=== PATIENT | male | born 1965 | race Caucasian/White ===

== ENCOUNTER → 2016-12-11 | Outpatient (CLI) | payer OTHER ==
[~2016-12-11] MED LIST: ACCUNEB 0.1.25 MG/1 INH; ADVAIR 250/501 EA PO; ASPIRIN325 M2 PO; ATIVAN1 MG PO; BROMFED DM COU118 M1 PO; CALCIUM-500 5001 CTB PO; CELEXA20 MG PO; CIPRO500 MG PO; CLARITIN-D 12 H1 TAB PO; CLARITIN10 MG PO; DOXYCYCLINE100 M3 PO; FIORICET 325 MG1 TAB PO; IBU-8800 MG PO; KLONOPIN2 MG PO; MEDROL DOSEPAK4 MG PO; NORCO 325 MG-51 TAB PO; OXYGEN NAS; PLAVIX75 MG PO; PREDNISONE10 MG PO; ROBITUSSIN AC 110 ML PO; SINGULAIR CHEWAB4 MG PO; SINGULAIR10 MG PO; TRAMADOL HCL50 MG PO; TRAZADONE HYDR100 MG PO; ULTRAM50 MG PO; VALIUM10 MG PO; VALIUM5 MG PO; VENTOLIN H0.09 MG/AC INH; VIBRAMYCIN100 MG PO; VICODIN 5/500 505 MG PO; VITAMIN D50000 I3 PO; XANAX1 MG PO
== END | disposition home or self-care (01) ==
LOC: RAD 09:39
DX: M51.36 Other intervertebral disc degeneration, lumbar region (principal); M54.5 Low back pain

== ENCOUNTER → 2017-11-10 | Outpatient (CLI) | payer OTHER | END | disposition home or self-care (01) | LOC: CT 12:58 | DX: J43.9 Emphysema, unspecified (principal); N20.0 Calculus of kidney; J45.909 Unspecified asthma, uncomplicated; R76.11 Nonspecific reaction to tuberculin skin test without active tuberculosis; Z72.0 Tobacco use; Z80.1 Family history of malignant neoplasm of trachea, bronchus and lung ==

== ENCOUNTER → 2018-06-17 | Day surgery (SDC) | payer OTHER ==
[~2018-06-17] VITALS: Ht 162.5 cm; Wt 59.0 kg
[~2018-06-17] MED LIST changes: +SUNMARK OMEPRAZ20 M1 PO
--- NOTE | ~2018-06-17 | O ---
[place], [place] OPERATIVE NOTE NAME: SARAH MACIEL UNIT #: [id number] ROOM: [facility] [birth year] DOS: 06/17/2018 GASTROENDOSCOPIC REPORT HISTORY OF PRESENT ILLNESS: This is a 53-year-old who presented with chief complaint of upper esophageal dysphagia to solid food. ALLERGIES: PENICILLIN. FAMILY HISTORY: Father with esophageal carcinoma. PAST SURGICAL HISTORY: Right inguinal hernia. PAST MEDICAL HISTORY: Anxiety, COPD, sinusitis, sleep apnea. SOCIAL HISTORY: Smoker and 12 carbonated soda per day. PROCEDURE: Today's procedure part of investigation is panendoscopy plus balloon dilation of esophagus plus biopsy of gastritis. PREMEDICATION: Propofol. SCOPE: Olympus forward-viewing gastroscope Q10 video. REPORT: After putting the patient in left lateral position and application of lubricant to the scope, the scope was introduced. Thereafter, under direct visualization, advanced through the length of esophagus without difficulty. Esophagus, cervical, thoracic distally carefully examined. Narrowing was noticed, however, there were no intraluminal lesions. Gastric pouch was entered, gastritis seen. Antral biopsy obtained for H. pylori. Duodenal bulb, second and third part within normal limit. The patient was extubated to mid gastric pouch and a balloon size 20 was introduced into the esophagus and to size 18 was dilated. Highest resistance at upper esophagus noticed. The patient was extubated, tolerated the procedure well. IMPRESSION: 1. Bile reflux gastritis, status post antral biopsy. 2. Benign esophageal stricture, status post balloon dilation. PLAN AND DISCUSSION: I have counseled the patient to abstain from avid smoking as well as drinking 12 cans of carbonated sodas per day. On the other hand, I am going to start him on omeprazole 20 mg 1 daily and clinically reassess in the GI Clinic to see if there is any improvement in his swallows. Otherwise, he is advised to have routine followup with you in office. Photographic series have been attached to the chart for future reference. Thank you very much indeed for your kind referral. [place], [place] OPERATIVE NOTE NAME: SARAH MACIEL UNIT #: [id number] ROOM: [facility] BIR[facility]: [birth year] ALEX HAYES MD CM:ROGERS:OPERATIVE NOTE 5 ALEX HAYES MD 06/17/18 0933 interface
[2018-06-17 08:32] VITALS: BP 118/81
[2018-06-17 09:09] VITALS: BP 91/49
[2018-06-17 09:40] VITALS: BP 115/73
== END | disposition home or self-care (01) ==
LOC: SDC 06-12 10:15
DX: K29.50 Unspecified chronic gastritis without bleeding (principal); K22.2 Esophageal obstruction; J44.9 Chronic obstructive pulmonary disease, unspecified; F41.9 Anxiety disorder, unspecified; G47.33 Obstructive sleep apnea (adult) (pediatric); F17.210 Nicotine dependence, cigarettes, uncomplicated; F32.9 Major depressive disorder, single episode, unspecified; Z80.0 Family history of malignant neoplasm of digestive organs; Z88.0 Allergy status to penicillin; Z98.890 Other specified postprocedural states; Z79.899 Other long term (current) drug therapy; Z86.010 Personal history of colon polyps; Z88.8 Allergy status to other drugs, medicaments and biological substances

== ENCOUNTER → 2020-07-18 | Outpatient (CLI) | payer OTHER | END | disposition home or self-care (01) | LOC: US 15:49 | PROVIDERS: ATTEND Nurse Practitioner Primary Care | DX: R59.0 Localized enlarged lymph nodes (principal) ==

== ENCOUNTER 2020-09-22 10:09 | Emergency (ER) | payer OTHER ==
[~2020-09-22] VITALS: Ht 162.5 cm; Wt 630.5 kg
[2020-09-22 10:14] VITALS: BP 129/78
[2020-09-22 10:40] LABS: BASO % 0.2 % (0.0-1.0); EOS # 0.1 10*3/uL (0.0-0.4); EOS % 0.8 % (1.0-4.0); HEMATOCRIT 49.7 % (42.0-52.0); LYMPH # 1.6 10*3/uL (1.3-4.4); LYMPH % 12.1 % (27.0-41.0); MEAN CELL VOLUME 86.6 fl (80.0-94.0); MEAN CORPUSCULAR HGB 28.9 pg (27.0-31.0); MEAN CORPUSCULAR HGB CONC 33.4 g/dl (33.0-37.0); MEAN PLATELET VOLUME 9.6 fl (9.6-12.3); MONO # 0.5 10*3/uL (0.1-1.0); MONO % 3.9 % (3.0-9.0); NEUT % 82.7 % (47.0-73.0); PLATELET COUNT AUTOMATED 250 10*3/uL (130-400); RED BLOOD COUNT 5.74 10*6/uL (4.50-5.90); RED CELL DISTRI WIDTH 14.1 % (0-14.5); WHITE BLOOD COUNT 13.3 10*3/uL (4.8-10.8)
[2020-09-22 10:54] LABS: ALKALINE PHOSPHATASE 70 U/L (45-117); BUN 16 mg/dl (7-24); CHLORIDE 108 mmol/L (98-107); CREATININE 0.81 mg/dL (0.70-1.30); POTASSIUM 3.6 mmol/L (3.5-5.1); SGOT/AST 10 IU/L (3-35); SGPT/ALT 22 U/L (12-78); SODIUM 140 mmol/L (136-145); TOTAL PROTEIN 6.9 gm/dL (6.4-8.2)
[2020-09-22 12:06] LABS: BILIRUBIN 2+ (Negative); BLOOD 3+ (Negative); CLARITY Cloudy (Clear); COLOR Dark Yellow (Yellow); GLUCOSE Negative (Negative); KETONE Trace (Negative); LEUKO ESTERASE Trace (Negative); NITRITE Negative (Negative); SPECIFIC GRAVITY >= 1.030 (1.001-1.030)
[2020-09-22 12:18] LABS: RBC TNTC rbc/hpf (0-2)
[2020-09-22 12:19] LABS: BACTERIA 3+; CALCIUM OXALATE CRYSTALS 2+; MUCOUS 3+
[2020-09-22] MEDS ORDERED: NORCO 10-325 T1 EACH PO (12:41)
[2020-09-22] MEDS ORDERED: SEPTDS PO (12:42)
== END 2020-09-22 12:47 | disposition home or self-care (01) ==
LOC: ED 10:09
PROVIDERS: Emergency Medicine
DX: N20.1 Calculus of ureter (principal); N39.0 Urinary tract infection, site not specified; Z88.0 Allergy status to penicillin; Z88.8 Allergy status to other drugs, medicaments and biological substances; Z79.899 Other long term (current) drug therapy

== ENCOUNTER 2021-02-07 14:02 | Emergency (ER) | payer OTHER ==
[~2021-02-07] VITALS: Wt 63.5 kg
[~2021-02-07 14:02] MED LIST changes: +NORCO 10-325 T1 EACH PO; +SEPTDS PO
[2021-02-07 14:07] VITALS: BP 126/76
[2021-02-07] MEDS ORDERED: PREDNISONE50 MG PO (15:56)
[2021-02-07] MEDS ORDERED: CYCLOBENZAPRINE10 MG PO (15:56)
[2021-02-07] MEDS ORDERED: HYDROCODONE-AC1 EAC1 PO (16:24)
== END 2021-02-07 16:34 | disposition home or self-care (01) ==
LOC: ED 14:02
DX: S39.012A Strain of muscle, fascia and tendon of lower back, initial encounter (principal); F41.9 Anxiety disorder, unspecified; J44.9 Chronic obstructive pulmonary disease, unspecified; Z88.0 Allergy status to penicillin; Z88.8 Allergy status to other drugs, medicaments and biological substances; Z79.899 Other long term (current) drug therapy; X58.XXXA Exposure to other specified factors, initial encounter; Y93.89 Activity, other specified; Y92.89 Other specified places as the place of occurrence of the external cause; Y99.8 Other external cause status

== ENCOUNTER → 2021-06-11 | Outpatient (CLI) | payer OTHER ==
[~2021-06-11] MED LIST changes: +CYCLOBENZAPRINE10 MG PO; +HYDROCODONE-AC1 EAC1 PO; +PREDNISONE50 MG PO
== END | disposition home or self-care (01) ==
LOC: CT 13:00
PROVIDERS: ATTEND Nurse Practitioner Primary Care
DX: J43.9 Emphysema, unspecified (principal); R06.02 Shortness of breath; Z72.0 Tobacco use

== ENCOUNTER → 2021-06-25 | Outpatient (CLI) | payer OTHER | END | disposition home or self-care (01) | LOC: MRI 11:00 | PROVIDERS: ATTEND Nurse Practitioner Primary Care | DX: I25.9 Chronic ischemic heart disease, unspecified (principal); H53.19 Other subjective visual disturbances; G43.011 Migraine without aura, intractable, with status migrainosus ==

== ENCOUNTER 2022-01-09 13:02 | Emergency (ER) | payer OTHER ==
[~2022-01-09] VITALS: Ht 162.5 cm; Wt 63.5 kg
[2022-01-09 13:17] VITALS: BP 118/72
[2022-01-09] MEDS ORDERED: TYLENOL325 M1 PO (15:14)
== END 2022-01-09 15:13 | disposition home or self-care (01) ==
LOC: ED 13:02
DX: S63.502A Unspecified sprain of left wrist, initial encounter (principal); J44.9 Chronic obstructive pulmonary disease, unspecified; Z88.0 Allergy status to penicillin; Z88.1 Allergy status to other antibiotic agents; Z79.899 Other long term (current) drug therapy; Z79.82 Long term (current) use of aspirin; W00.0XXA Fall on same level due to ice and snow, initial encounter; Y93.89 Activity, other specified; Y92.89 Other specified places as the place of occurrence of the external cause; Y99.8 Other external cause status

== ENCOUNTER → 2023-03-06 | Outpatient (CLI) | payer OTHER ==
[~2023-03-06] MED LIST changes: +TYLENOL325 M1 PO
== END | disposition home or self-care (01) ==
LOC: RAD 08:56
PROVIDERS: ATTEND Internal Medicine
DX: M19.042 Primary osteoarthritis, left hand (principal); M79.89 Other specified soft tissue disorders; M25.842 Other specified joint disorders, left hand

== ENCOUNTER → 2023-12-02 | Outpatient (CLI) | payer OTHER | END | disposition home or self-care (01) | LOC: CT 01:03 | PROVIDERS: ATTEND Internal Medicine | DX: J43.9 Emphysema, unspecified (principal); F17.200 Nicotine dependence, unspecified, uncomplicated ==

== ENCOUNTER 2024-02-25 09:44 | Emergency (ER) | payer OTHER ==
[~2024-02-25] VITALS: Ht 162.5 cm; Wt 63.5 kg
[2024-02-25 10:06] VITALS: BP 125/74
[2024-02-25] MEDS ORDERED: Acetaminophen/Hydrocodone 5 MG/325 MG TABLET PO ONE (10:15)
[2024-02-25] MEDS ORDERED: methylPREDNISolone sod succ 125 MG VIAL IM ONE (10:15)
[2024-02-25] MEDS ORDERED: PREDNISONE20 M1 PO (10:20)
[2024-02-25] MEDS ORDERED: CYCLOBENZAPRINE10 MG PO (10:20)
== END 2024-02-25 10:29 | disposition home or self-care (01) ==
LOC: ED 09:44
DX: M54.50 Low back pain, unspecified (principal); J45.909 Unspecified asthma, uncomplicated; F41.9 Anxiety disorder, unspecified; J44.9 Chronic obstructive pulmonary disease, unspecified; Z88.0 Allergy status to penicillin; Z88.8 Allergy status to other drugs, medicaments and biological substances; Z98.890 Other specified postprocedural states

== ENCOUNTER 2024-10-07 08:39 | Inpatient (IN) | payer OTHER ==
[~2024-10-07] VITALS: Ht 162.6 cm; Wt 57.2 kg
[~2024-10-07 08:39] MED LIST changes: +PREDNISONE20 M1 PO
[2024-10-07 08:48] VITALS: BP 124/77
[2024-10-07] MEDS ORDERED: MAGNESIUM SULFATE 50 ML IV ONE (08:55)
[2024-10-07] MEDS ORDERED: SODIUM CHLORIDE 0.9% 1,000 ML IV ONE ×3 (08:55→10:15)
[2024-10-07] MEDS ORDERED: methylPREDNISolone sod succ 125 MG VIAL IV ONE (08:55)
[2024-10-07] MEDS ORDERED: AZITHROMYCIN 250 MG TAB PO ONE (08:55)
[2024-10-07] MEDS ORDERED: Albuterol Sulfate 2.5 MG/3 ML VIAL NEB ONE (08:55)
[2024-10-07 09:09] LABS: BASO % 0.1 % (0.0-1.0); EOS # 0.2 10*3/uL (0.0-0.4); EOS % 2.4 % (1.0-4.0); HEMATOCRIT 42.5 % (42.0-52.0); MEAN CELL VOLUME 80.8 fl (80.0-94.0); MEAN CORPUSCULAR HGB 26.6 pg (27.0-31.0); MEAN CORPUSCULAR HGB CONC 32.9 g/dl (33.0-37.0); MEAN PLATELET VOLUME 9.2 fl (9.6-12.3); MONO # 0.4 10*3/uL (0.1-1.0); MONO % 5.5 % (3.0-9.0); NEUT # 4.9 10*3/uL (2.3-7.9); PLATELET COUNT AUTOMATED 264 10*3/uL (130-400); RED BLOOD COUNT 5.26 10*6/uL (4.50-5.90); RED CELL DISTRI WIDTH 15.6 % (0-14.5); WHITE BLOOD COUNT 7.2 10*3/uL (4.8-10.8)
[2024-10-07 09:30] LABS: BUN 7 mg/dl (9-23); CHLORIDE 103 mmol/L (98-107)
[2024-10-07] MEDS ORDERED: POTASSIUM CHLORIDE 20 MEQ TAB PO ONE (09:40)
[2024-10-07] MEDS ORDERED: Ceftriaxone Sodium 1 GM/10 ML SYR IV ONE (10:05)
[2024-10-07] MEDS ORDERED: AMITRIPTYLINE H10 M1 PO (10:09)
[2024-10-07] MEDS ORDERED: FISH OIL CONC1000 M2 PO (10:10)
[2024-10-07] MEDS ORDERED: TIZANIDINE HCL4 MG PO (10:10)
[2024-10-07] MEDS ORDERED: SUMATRIPTAN SU100 M1 PO (10:11)
[2024-10-07] MEDS ORDERED: ALPRAZolam 0.5 MG TAB PO PRN (12:30)
[2024-10-07] MEDS ORDERED: Ondansetron Hydrochloride 4 MG/2 ML VIAL IV PRN (12:40)
[2024-10-07] MEDS ORDERED: ACETAMINOPHEN 325 MG TAB PO PRN (12:40)
[2024-10-07] MEDS ORDERED: BISACODYL 5 MG TAB PO PRN (12:40)
[2024-10-07 14:06] VITALS: BP 126/80
[2024-10-07] MEDS ORDERED: Albuterol Sulf/Ipratropium 3 ML VIAL NEB SCH (15:45)
[2024-10-07 18:08] VITALS: BP 125/70
[2024-10-07 20:00] VITALS: BP 135/82
[2024-10-07] MEDS ORDERED: Amitriptyline Hydrochloride 10 MG TAB PO SCH (22:00)
[2024-10-07] MEDS ORDERED: GUAIFENESIN 600 MG TAB ER PO SCH (22:00)
[2024-10-08] VITALS: BP 144/80
[2024-10-08 06:48] LABS: BASO % 0.1 % (0.0-1.0); HEMATOCRIT 38.1 % (42.0-52.0); MEAN CELL VOLUME 82.3 fl (80.0-94.0); MEAN CORPUSCULAR HGB 26.3 pg (27.0-31.0); MEAN PLATELET VOLUME 9.8 fl (9.6-12.3); MONO # 0.3 10*3/uL (0.1-1.0); MONO % 2.2 % (3.0-9.0); NEUT # 10.9 10*3/uL (2.3-7.9); NEUT % 88.6 % (47.0-73.0); PLATELET COUNT AUTOMATED 247 10*3/uL (130-400); RED BLOOD COUNT 4.63 10*6/uL (4.50-5.90); RED CELL DISTRI WIDTH 15.5 % (0-14.5); WHITE BLOOD COUNT 12.3 10*3/uL (4.8-10.8)
[2024-10-08 07:29] LABS: ALKALINE PHOSPHATASE 88 U/L (46-116); BUN 11 mg/dl (9-23); CHLORIDE 109 mmol/L (98-107); CHOLESTEROL 126 mg/dL (<200); FREE T4 0.95 ng/dl (0.89-1.76); LDL CHOLESTEROL 87 mg/dL (9-159); POTASSIUM 3.9 mmol/L (3.4-5.1); TRIGLYCERIDES 57 mg/dl (<150)
[2024-10-08 07:36] LABS: SGPT/ALT < 7 U/L (5-49)
[2024-10-08 08:00] VITALS: BP 134/72
[2024-10-08 08:14] LABS: VITAMIN D, 25-HYDROXY 17.1 ng/mL (30-100)
[2024-10-08] MEDS ORDERED: Nicotine 21 MG PATCH T SCH (10:00)
[2024-10-08] MEDS ORDERED: Ceftriaxone Sodium 1 GM in SYRINGE INFUSION 10 ML IV SCH (10:00)
[2024-10-08] MEDS ORDERED: CITALOPRAM 20 MG TAB PO SCH (10:00)
[2024-10-08] MEDS ORDERED: Enoxaparin Sodium 40 MG/0.4 ML SYR SC SCH (10:00)
[2024-10-08] MEDS ORDERED: ASPIRIN 325 MG TAB PO SCH (10:00)
[2024-10-08] MEDS ORDERED: AZITHROMYCIN 250 MG TAB PO SCH (10:00)
[2024-10-08] MEDS ORDERED: OMNICEF300 MG PO (11:52)
[2024-10-08] MEDS ORDERED: ZITHROMAX500 MG PO (11:52)
[2024-10-08] MEDS ORDERED: MUCUS RELIEF E600 MG PO (11:56)
== END 2024-10-08 13:00 | disposition home or self-care (01) | DRG 137 ==
LOC: ED 08:39 → EDHOLD 10:41 → 4E 10:41
PROVIDERS: Emergency Medicine; Registered Nurse; ADMIT Internal Medicine; ATTEND Internal Medicine
DX: J15.69 Pneumonia due to other Gram-negative bacteria (principal); E44.0 Moderate protein-calorie malnutrition; J44.1 Chronic obstructive pulmonary disease with (acute) exacerbation; E87.6 Hypokalemia; F17.210 Nicotine dependence, cigarettes, uncomplicated; F32.A Depression, unspecified; J44.0 Chronic obstructive pulmonary disease with (acute) lower respiratory infection; F41.1 Generalized anxiety disorder; Z88.1 Allergy status to other antibiotic agents; Z88.8 Allergy status to other drugs, medicaments and biological substances; Z79.51 Long term (current) use of inhaled steroids; Z79.82 Long term (current) use of aspirin; Z79.899 Other long term (current) drug therapy; Z79.1 Long term (current) use of non-steroidal anti-inflammatories (NSAID)

== ENCOUNTER → 2024-11-18 | Outpatient (CLI) | payer OTHER ==
[~2024-11-18] MED LIST changes: +AMITRIPTYLINE H10 M1 PO; +FISH OIL CONC1000 M2 PO; +MUCUS RELIEF E600 MG PO; +OMNICEF300 MG PO; +SUMATRIPTAN SU100 M1 PO; +TIZANIDINE HCL4 MG PO; +ZITHROMAX500 MG PO
== END | disposition home or self-care (01) ==
LOC: CARD 10:51
PROVIDERS: ATTEND Internal Medicine Cardiovascular Disease
DX: R07.89 Other chest pain (principal)

== ENCOUNTER → 2024-11-30 | Outpatient (CLI) | payer OTHER ==
[~2024-11-30] MED LIST changes: +ATORVASTATIN CA20 M1 PO; +Clopidogrel75 MG PO; +FISH OIL 1,0001 EAC9 PO; +OMEPRAZOLE20 M3 PO; +QUETIAPINE FUM100 M3 PO; +Regadenoson 0.4 MG/5 ML SYR IV ONE; +TRELEGY ELLIPT1 EAC1 PO; +ZANAFLEX4 M2 PO
== END | disposition home or self-care (01) ==
LOC: CARD 00:42
PROVIDERS: ATTEND Internal Medicine Cardiovascular Disease
DX: I45.10 Unspecified right bundle-branch block (principal); R07.89 Other chest pain; R06.02 Shortness of breath

== ENCOUNTER → 2024-12-02 | Outpatient (CLI) | payer OTHER ==
[~2024-12-02] MED LIST changes: +CEFUROXIME AXE500 MG PO; +IOHEXOL 300 MG/ML 100 ML VIAL IV ONE; -Regadenoson 0.4 MG/5 ML SYR IV ONE
== END | disposition home or self-care (01) ==
LOC: CT 11-26 10:00
PROVIDERS: ATTEND Internal Medicine
DX: J43.9 Emphysema, unspecified (principal); R59.0 Localized enlarged lymph nodes; J98.4 Other disorders of lung

== ENCOUNTER 2024-12-03 15:02 | Emergency (ER) | payer OTHER ==
[~2024-12-03] VITALS: Ht 162.5 cm; Wt 55.1 kg
[~2024-12-03 15:02] MED LIST changes: -CEFUROXIME AXE500 MG PO; -IOHEXOL 300 MG/ML 100 ML VIAL IV ONE
[2024-12-03 15:21] VITALS: BP 137/92
[2024-12-03 16:11] LABS: BASO % 0.4 % (0.0-1.0); EOS # 0.1 10*3/uL (0.0-0.4); EOS % 0.9 % (1.0-4.0); HEMATOCRIT 47.4 % (42.0-52.0); MEAN CELL VOLUME 82.1 fl (80.0-94.0); MEAN CORPUSCULAR HGB 26.7 pg (27.0-31.0); MEAN CORPUSCULAR HGB CONC 32.5 g/dl (33.0-37.0); MEAN PLATELET VOLUME 8.9 fl (9.6-12.3); MONO # 0.4 10*3/uL (0.1-1.0); NEUT # 7.3 10*3/uL (2.3-7.9); NEUT % 75.1 % (47.0-73.0); PLATELET COUNT AUTOMATED 276 10*3/uL (130-400); RED BLOOD COUNT 5.77 10*6/uL (4.50-5.90); RED CELL DISTRI WIDTH 16.9 % (0-14.5); WHITE BLOOD COUNT 9.7 10*3/uL (4.8-10.8)
[2024-12-03 16:22] LABS: ACT PARTIAL THROMBO TIME 26.9 SECONDS (20.0-32.1)
[2024-12-03 16:30] LABS: BUN 6 mg/dl (9-23); CHLORIDE 103 mmol/L (98-107); POTASSIUM 3.1 mmol/L (3.4-5.1)
[2024-12-03] MEDS ORDERED: POTASSIUM CHLORIDE 20 MEQ TAB PO ONE (16:45)
[2024-12-03] MEDS ORDERED: Cefuroxime Axetil 250 MG TAB PO ONE (16:45)
[2024-12-03] MEDS ORDERED: Doxycycline Hyclate 100 MG CAP PO ONE (16:45)
[2024-12-03] MEDS ORDERED: predniSONE 20 MG TAB PO ONE (16:50)
[2024-12-03] MEDS ORDERED: VIBRAMYCIN100 MG PO (16:53)
[2024-12-03] MEDS ORDERED: CEFUROXIME AXE500 MG PO (16:53)
[2024-12-03] MEDS ORDERED: PREDNISONE50 MG PO (16:53)
== END 2024-12-03 17:09 | disposition home or self-care (01) ==
LOC: ED 15:02
PROVIDERS: Nurse Practitioner
DX: J18.9 Pneumonia, unspecified organism (principal); R09.1 Pleurisy; J43.9 Emphysema, unspecified; F41.9 Anxiety disorder, unspecified; F17.210 Nicotine dependence, cigarettes, uncomplicated; F12.90 Cannabis use, unspecified, uncomplicated; Z88.0 Allergy status to penicillin; Z88.1 Allergy status to other antibiotic agents; Z98.890 Other specified postprocedural states

== ENCOUNTER 2025-04-21 18:45 | Emergency (ER) | payer OTHER ==
[~2025-04-21] VITALS: Ht 162.5 cm; Wt 50.8 kg
[~2025-04-21 18:45] MED LIST changes: +ASPIRIN ADULT L81 M1 PO; +CEFUROXIME AXE500 MG PO; +DALI500T PO; +DOXYCYCLINE MO100 MG PO; +LIPITOR20 MG PO; +MUCINEX ER600 MG PO; +OMEPRAZOLE MAGN20 MG PO; +PLAVIX75 M1 PO; +QUETIAPINE FUM100 M1 PO; +SINGULAIR10 M1 PO; +TRELEGY ELLIPT1 EAC1 INH; +VENT7GM INH; +VENTOLIN 02.5 MG/3 M INH; +VITAMIN D3125 MC1 PO; +VITAMIN D31250 MC2 PO; +ZANAFLEX4 MG PO
[2025-04-21 18:58] VITALS: BP 151/84
== END 2025-04-21 21:18 | disposition home or self-care (01) ==
LOC: ED 18:45
DX: S00.03XA Contusion of scalp, initial encounter (principal); L98.9 Disorder of the skin and subcutaneous tissue, unspecified; J44.9 Chronic obstructive pulmonary disease, unspecified; F41.9 Anxiety disorder, unspecified; Z85.118 Personal history of other malignant neoplasm of bronchus and lung; Z88.0 Allergy status to penicillin; Z88.1 Allergy status to other antibiotic agents; Z79.899 Other long term (current) drug therapy; Z79.82 Long term (current) use of aspirin; Z87.891 Personal history of nicotine dependence; W22.03XA Walked into furniture, initial encounter; Y93.89 Activity, other specified; Y92.098 Other place in other non-institutional residence as the place of occurrence of the external cause; Y99.8 Other external cause status

== ENCOUNTER → 2025-05-18 | Outpatient (CLI) | payer OTHER | END | disposition home or self-care (01) | LOC: LAB 01:05 | PROVIDERS: ATTEND Pediatrics | DX: C34.81 Malignant neoplasm of overlapping sites of right bronchus and lung (principal); R22.0 Localized swelling, mass and lump, head ==

== ENCOUNTER 2025-07-10 14:12 | Emergency (ER) | payer OTHER ==
[~2025-07-10] VITALS: Ht 162.5 cm; Wt 45.4 kg
[2025-07-10 14:26] VITALS: BP 149/109
[2025-07-10] MEDS ORDERED: Dexamethasone Sodium Phospha 20 MG/5 ML VIAL IV ONE (14:45)
[2025-07-10] MEDS ORDERED: Ondansetron Hydrochloride 4 MG/2 ML VIAL IV ONE (14:45)
[2025-07-10] MEDS ORDERED: Albuterol Sulf/Ipratropium 3 ML VIAL NEB ONE (14:45)
[2025-07-10 14:59] LABS: BASO # 0.0 10*3/uL (0.0-0.1); BASO % 0.3 % (0.0-1.0); EOS # 0.1 10*3/uL (0.0-0.4); EOS % 0.9 % (1.0-4.0); MEAN CELL VOLUME 85.1 fl (80.0-94.0); MEAN CORPUSCULAR HGB 28.1 pg (27.0-31.0); MEAN PLATELET VOLUME 8.6 fl (9.6-12.3); MONO # 0.5 10*3/uL (0.1-1.0); MONO % 7.6 % (3.0-9.0); NEUT # 5.4 10*3/uL (2.3-7.9); NEUT % 77.5 % (47.0-73.0); NUCLEATED RED BLOOD CELL 0.0 % (0.0-0.0); NUCLEATED RED BLOOD CELL 0.0 10*3/uL (0.0-0.0); PLATELET COUNT AUTOMATED 334 10*3/uL (130-400); RED CELL DISTRI WIDTH 15.8 % (0-14.5)
[2025-07-10 15:20] LABS: BUN 6 mg/dl (9-23)
[2025-07-10] MEDS ORDERED: Potassium Bicarbonate/Potass 25 MEQ TAB PO ONE (15:45)
[2025-07-10] MEDS ORDERED: POTASSIUM CHLORIDE IN WATER 100 ML IV ONE (15:45)
[2025-07-10] MEDS ORDERED: POTASSIUM CHLO20 ME3 PO (16:18)
[2025-07-10] MEDS ORDERED: PREDNISONE50 MG PO (16:18)
== END 2025-07-10 18:41 | disposition home or self-care (01) ==
LOC: ED 14:12
PROVIDERS: Emergency Medicine
DX: J44.1 Chronic obstructive pulmonary disease with (acute) exacerbation (principal); M94.0 Chondrocostal junction syndrome [Tietze]; E87.6 Hypokalemia; F41.9 Anxiety disorder, unspecified; F17.210 Nicotine dependence, cigarettes, uncomplicated

== ENCOUNTER 2025-08-03 16:04 | Emergency (ER) | payer OTHER ==
[~2025-08-03] VITALS: Ht 162.5 cm; Wt 45.4 kg
[~2025-08-03 16:04] MED LIST changes: +POTASSIUM CHLO20 ME3 PO
[2025-08-03 16:18] VITALS: BP 157/124
[2025-08-03] MEDS ORDERED: Acetaminophen/Oxycodone 5 MG/325 MG TABLET PO ONE (17:00)
[2025-08-03] MEDS ORDERED: Dexamethasone Sodium Phospha 20 MG/5 ML VIAL IV ONE (17:00)
[2025-08-03 17:23] LABS: BASO # 0.0 10*3/uL (0.0-0.1); BASO % 0.4 % (0.0-1.0); EOS # 0.2 10*3/uL (0.0-0.4); EOS % 1.9 % (1.0-4.0); MEAN CELL VOLUME 84.9 fl (80.0-94.0); MEAN CORPUSCULAR HGB 28.3 pg (27.0-31.0); MEAN PLATELET VOLUME 9.3 fl (9.6-12.3); MONO # 0.7 10*3/uL (0.1-1.0); MONO % 6.5 % (3.0-9.0); NEUT # 9.0 10*3/uL (2.3-7.9); NEUT % 81.8 % (47.0-73.0); NUCLEATED RED BLOOD CELL 0.0 % (0.0-0.0); NUCLEATED RED BLOOD CELL 0.0 10*3/uL (0.0-0.0); PLATELET COUNT AUTOMATED 504 10*3/uL (130-400); RED CELL DISTRI WIDTH 14.8 % (0-14.5)
[2025-08-03 17:56] LABS: BUN 10 mg/dl (9-23)
[2025-08-03] MEDS ORDERED: Ondansetron4 MG PO (18:18)
[2025-08-03] MEDS ORDERED: PERCOCET 5-3251 EACH PO (18:18)
== END 2025-08-03 18:35 ==
LOC: ED 16:04
PROVIDERS: Emergency Medicine
DX: M84.48XA Pathological fracture, other site, initial encounter for fracture (principal); C34.90 Malignant neoplasm of unspecified part of unspecified bronchus or lung; J44.9 Chronic obstructive pulmonary disease, unspecified; E87.6 Hypokalemia; R07.81 Pleurodynia; R05.9 Cough, unspecified; F12.90 Cannabis use, unspecified, uncomplicated; F17.210 Nicotine dependence, cigarettes, uncomplicated; Z88.0 Allergy status to penicillin; Z88.1 Allergy status to other antibiotic agents; Z79.899 Other long term (current) drug therapy; Z79.82 Long term (current) use of aspirin

== ENCOUNTER 2025-08-19 16:36 | Emergency (ER) | payer OTHER ==
[~2025-08-19] VITALS: Wt 45.4 kg
[~2025-08-19 16:36] MED LIST changes: +Ondansetron4 MG PO; +PERCOCET 5-3251 EACH PO
[2025-08-19 16:46] VITALS: BP 153/88
[2025-08-19] MEDS ORDERED: METHOCARBAMOL750 M1 PO (17:15)
== END 2025-08-19 17:20 | disposition home or self-care (01) ==
LOC: ED 16:36
DX: G56.31 Lesion of radial nerve, right upper limb (principal); C34.90 Malignant neoplasm of unspecified part of unspecified bronchus or lung; F17.210 Nicotine dependence, cigarettes, uncomplicated; Z88.0 Allergy status to penicillin; Z88.1 Allergy status to other antibiotic agents; Z79.899 Other long term (current) drug therapy; Z79.82 Long term (current) use of aspirin

== ENCOUNTER → 2025-09-23 | Outpatient (CLI) | payer OTHER ==
[~2025-09-23] MED LIST changes: +METHOCARBAMOL750 M1 PO
== END | disposition home or self-care (01) ==
LOC: ORTHO 02:31
PROVIDERS: ATTEND Orthopaedic Surgery
DX: M25.841 Other specified joint disorders, right hand (principal); M79.641 Pain in right hand

== ENCOUNTER 2025-10-17 18:43 | Inpatient (IN) | payer OTHER ==
[2025-10-17 19:13] VITALS: BP 94/60
[2025-10-17 20:00] VITALS: BP 91/58
[2025-10-17] MEDS ORDERED: MORPHINE Sulfate 5 MG IV PRN (21:10)
[2025-10-17] MEDS ORDERED: LORazepam 2 MG/ML VIAL IV PRN (21:15)
[2025-10-17] MEDS ORDERED: IBUPROFEN 800 MG TAB PO SCH (22:00)
[2025-10-17] MEDS ORDERED: LORazepam 2 MG/ML VIAL IV SCH (22:00)
[2025-10-17] MEDS ORDERED: Morphine Sulfate 10 MG/0.5 ML CONCENTRATE ORAL SYRINGE SL PRN (22:30)
[2025-10-17] MEDS ORDERED: LORazepam 0.5 MG TAB PO PRN (22:35)
[2025-10-18] VITALS: BP 111/72
[2025-10-18] MEDS ORDERED: LORazepam 0.5 MG TAB PO SCH
[2025-10-18] MEDS ORDERED: Morphine Sulfate 10 MG/0.5 ML CONCENTRATE ORAL SYRINGE SL SCH
[2025-10-18] MEDS ORDERED: Albuterol Sulf/Ipratropium 3 ML VIAL NEB PRN (04:10)
[2025-10-18] MEDS ORDERED: LORazepam 2 MG/ML VIAL IV ONE (06:35)
[2025-10-18 08:00] VITALS: BP 133/98
[2025-10-18] MEDS ORDERED: LORazepam 2 MG/ML VIAL IV SCH (08:00)
[2025-10-18] MEDS ORDERED: predniSONE 20 MG TAB PO SCH (10:00)
[2025-10-18] MEDS ORDERED: LORazepam 2 MG/ML VIAL IV PRN ×2 (14:35)
[2025-10-18] MEDS ORDERED: GLYCOPYRROLATE IV PRN (14:50)
[2025-10-18] MEDS ORDERED: GLYCOPYRROLATE 0.4 MG/2 ML VIAL IV PRN (14:55)
== END 2025-10-18 18:25 | DRG 193 ==
LOC: 4E 18:43
PROVIDERS: ADMIT Internal Medicine; ATTEND Internal Medicine
PROC: 5A0935A Assistance with Respiratory Ventilation, Less than 24 Consecutive Hours, High Flow/Velocity Cannula (ICD-10-PCS; principal; 2025-10-18)
DX: J18.9 Pneumonia, unspecified organism (principal); G93.41 Metabolic encephalopathy; E87.20 Acidosis, unspecified; C34.90 Malignant neoplasm of unspecified part of unspecified bronchus or lung; R73.9 Hyperglycemia, unspecified; F41.1 Generalized anxiety disorder; D50.9 Iron deficiency anemia, unspecified; E87.6 Hypokalemia; E83.52 Hypercalcemia; Z51.5 Encounter for palliative care